=== PATIENT | male | born 1950 | race Two or more races ===

== ENCOUNTER 2017-05-31 11:18 | Inpatient (IN) | payer OTHER, BC ==
[~2017-05-31] VITALS: Ht 177.8 cm; Wt 84.9 kg
[~2017-05-31 11:18] MED LIST: Advair INH; COR200 PO; ECO81 PO; TOP50 PO; VENTOLIN H0.09 MG/A1 INH
[2017-05-31 12:33] LABS: BASOPHIL % 0.2 % (0-2); PLATELET COUNT 258 x10^3mcL (130-400); RED CELL DISTRIBUTION WIDTH 13.8 % (11.5-14.5)
[2017-05-31 12:40] LABS: CALCIUM 8.4 mg/dL (8.5-10.1); CHLORIDE SERUM 108 mmol/L (98-107); GFR1 > 60 mL/min; GLUCOSE SERUM 110 mg/dL (74-106); POTASSIUM SERUM 4.4 mmol/L (3.5-5.1); SODIUM SERUM 141 mmol/L (136-145)
[2017-05-31 12:45] LABS: ALBUMIN 3.3 g/dL (3.4-5.0); ALKALINE PHOSPHATASE 78 U/L (46-116); ALT/SGPT 27 U/L (16-63); AST/SGOT 16 U/L (15-37); BILIRUBIN TOTAL 0.44 mg/dL (0.20-1.00)
[2017-05-31 13:04] LABS: FREE T4 0.88 ng/dL (0.76-1.46); FREE THYROXINE INDEX 2.4 ug/dL (1.4-4.5); T4(THYROXINE) 6.8 ug/dL (4.7-13.3)
[2017-05-31 13:08] LABS: T3 TOTAL 0.92 ng/mL
[2017-05-31 16:00] LABS: CHOLESTEROL/HDL RATIO 3.1; MAGNESIUM 2.2 mg/dL (1.8-2.4)
[2017-05-31 16:01] LABS: microscopic required? NO
[2017-05-31 16:17] LABS: UA SPECIFIC GRAVITY 1.025 (1.005-1.035); urine erythrocyte NEGATIVE (NEGATIVE)
[2017-05-31 16:24] VITALS: BP 136/73
[2017-05-31 16:26] VITALS: Ht 177.8 cm; Wt 84.9 kg
[2017-05-31 16:29] LABS: AMPHETAMINE QUAL UR NONE DETECTED (NEG <=1000)
[2017-05-31] MEDS ORDERED: ATIVAN1 MG PO (19:28)
[2017-05-31] MEDS ORDERED: MONTELUKAST SOD10 M1 PO (19:28)
[2017-05-31 20:10] VITALS: BP 136/73
[2017-05-31 21:47] VITALS: BP 108/63
[2017-06-01 05:45] VITALS: BP 102/74
[2017-06-01 06:25] LABS: CARBON DIOXIDE 26.1 mmol/L (21-32); CHLORIDE SERUM 108 mmol/L (98-107); CREATININE SERUM 0.9 mg/dL (0.7-1.3); GFR1 > 60 mL/min; GLUCOSE SERUM 97 mg/dL (74-106); MAGNESIUM 2.1 mg/dL (1.8-2.4); PHOSPHOROUS 3.7 mg/dL (2.5-4.9); POTASSIUM SERUM 3.7 mmol/L (3.5-5.1); SODIUM SERUM 140 mmol/L (136-145)
[2017-06-01 06:30] LABS: BASOPHIL % 0.4 % (0-2); PLATELET COUNT 225 x10^3mcL (130-400); RED CELL DISTRIBUTION WIDTH 14.1 % (11.5-14.5)
[2017-06-01 09:19] VITALS: BP 106/78
[2017-06-01 14:17] VITALS: BP 94/75
[2017-06-01 17:31] VITALS: BP 97/68
[2017-06-01 20:35] VITALS: BP 108/65
[2017-06-02 06:16] VITALS: BP 96/65
[2017-06-02 06:27] LABS: CARBON DIOXIDE 26.9 mmol/L (21-32); CHLORIDE SERUM 109 mmol/L (98-107); GFR1 > 60 mL/min; GLUCOSE SERUM 96 mg/dL (74-106); MAGNESIUM 2.1 mg/dL (1.8-2.4); PHOSPHOROUS 4.3 mg/dL (2.5-4.9); POTASSIUM SERUM 3.9 mmol/L (3.5-5.1); SODIUM SERUM 141 mmol/L (136-145)
[2017-06-02 06:30] LABS: BASOPHIL % 0.4 % (0-2); PLATELET COUNT 214 x10^3mcL (130-400); RED CELL DISTRIBUTION WIDTH 14.1 % (11.5-14.5)
[2017-06-02] MEDS ORDERED: METHOCARBAMOL500 MG PO (07:49)
[2017-06-02] MEDS ORDERED: XARELTO20 M1 PO (07:50)
[2017-06-02] MEDS ORDERED: LIPI10 PO (07:54)
[2017-06-02 09:04] VITALS: BP 101/63
[2017-06-02] MEDS ORDERED: TOP50 PO (12:06)
[2017-06-02] MEDS ORDERED: NEU300 PO (12:08)
[2017-06-02] MEDS ORDERED: BUS5 PO (12:08)
[2017-06-02 13:13] VITALS: BP 101/63
== END 2017-06-02 14:25 | disposition home or self-care (01) | DRG 309 ==
LOC: ED 11:18 → DU 15:01
PROVIDERS: Emergency Medicine; ADMIT Family Medicine
DX: I48.0 Paroxysmal atrial fibrillation (principal); J98.11 Atelectasis; J44.1 Chronic obstructive pulmonary disease with (acute) exacerbation; E44.0 Moderate protein-calorie malnutrition; E11.42 Type 2 diabetes mellitus with diabetic polyneuropathy; S39.012A Strain of muscle, fascia and tendon of lower back, initial encounter; F41.1 Generalized anxiety disorder; M71.21 Synovial cyst of popliteal space [Baker], right knee; G47.00 Insomnia, unspecified; M46.04 Spinal enthesopathy, thoracic region; E78.5 Hyperlipidemia, unspecified; E87.8 Other disorders of electrolyte and fluid balance, not elsewhere classified; Z68.29 Body mass index [BMI] 29.0-29.9, adult; Z87.891 Personal history of nicotine dependence; Y93.89 Activity, other specified; X50.0XXA Overexertion from strenuous movement or load, initial encounter; Y92.018 Other place in single-family (private) house as the place of occurrence of the external cause
CPT/HCPCS: 83880; 84439; 85378; 94150; J2060; J3490; J7030; J7613; J7620; Q0092; Q9967

== ENCOUNTER 2020-07-04 15:24 | Emergency (ER) | payer OTHER, BC, SELFPAY ==
[~2020-07-04] VITALS: Ht 177.8 cm; Wt 83.9 kg
[~2020-07-04 15:24] MED LIST changes: +ATIVAN1 MG PO; +BUS5 PO; +LIPI10 PO; +METHOCARBAMOL500 MG PO; +MONTELUKAST SOD10 M1 PO; +NEU300 PO; +XARELTO20 M1 PO
[2020-07-04 15:27] VITALS: Ht 177.8 cm; Wt 83.9 kg
[2020-07-04 16:35] VITALS: BP 121/83
== END 2020-07-04 16:35 | disposition home or self-care (01) ==
LOC: ED 15:24
DX: U07.1 COVID-19 (principal); J45.909 Unspecified asthma, uncomplicated; Z88.6 Allergy status to analgesic agent
CPT/HCPCS: U0003